=== PATIENT | female | born 1965 | race Caucasian/White ===

== ENCOUNTER → 2020-08-20 16:56 | Outpatient (CLI) | payer OTHER, SELFPAY ==
--- NOTE | ~2020-08-20 | MM_ITS ---
EXAMINATION: MM screening [facility] BI w shauna HISTORY: Screening mammogram TECHNIQUE: Craniocaudal and mediolateral oblique 3-D tomosynthesis images were obtained and synthetic 2-D images were generated. CAD analysis was submitted and interpreted. COMPARISON: 07/14/2017, 02/28/2014, 12/07/2012 bilateral digital screening mammogram examinations BREAST PARENCHYMAL COMPOSITION: There are scattered areas of fibroglandular density. FINDINGS: There is no evidence of suspicious mass, calcification, or architectural distortion to sugg est malignancy in either breast. There has been no suspicious interval change. IMPRESSION: 1. No mammographic evidence of malignancy. 2. Recommend routine screening mammography in one year. BI-RADS Category 1: Negative Reviewed, dictated and finalized at location A.
== END ==
PROVIDERS: PCP Nurse Practitioner Adult Health; Visit Provider Obstetrics & Gynecology
DX: Z12.31 Encounter for screening mammogram for malignant neoplasm of breast (principal)
CPT/HCPCS: 77063; 77067

== ENCOUNTER → 2021-03-05 11:42 | Outpatient (CLI) | payer OTHER, SELFPAY ==
--- NOTE | ~2021-03-05 | XR_ITS ---
EXAMINATION: XR knee RT 3V DATE: 03/05/2021 12:20 INDICATION: Right knee pain. TECHNIQUE: 3 views of right knee were obtained. COMPARISON: None. FINDINGS: Bone alignment is normal. No fracture. There is mild tricompartmental osteoarthritis. There is a small knee joint effusion. IMPRESSION: 1. Mild right knee osteoarthritis. 2. Small right knee joint effusion. Reviewed, dictated and finalized at location A.
== END ==
PROVIDERS: PCP Nurse Practitioner Adult Health; Visit Provider Family Medicine
DX: M17.11 Unilateral primary osteoarthritis, right knee (principal); M25.461 Effusion, right knee
CPT/HCPCS: 73562

== ENCOUNTER 2021-10-19 08:04 | Outpatient (RCR) | payer OTHER, SELFPAY ==
[2021-10-19] MEDS: diphenhydrAMINE HCl CAP 25 MG CAPSULE PO (10:40)
[2021-10-19] MEDS: ACETAMINOPHEN 325 MG TABLET 650 MG PO (10:41)
[2021-10-19] MEDS: FAMOTIDINE 20 MG TABLET PO (10:41)
[2021-10-19 10:43] VITALS: BP 149/90; PULSE 76; RESP 20; TEMP 36.6; O2SAT 97
[2021-10-19 12:20] VITALS: BP 177/90
--- NOTE | 2021-10-20 09:35 | PC.NURSE ---
Called Ms Reynoso, and had to leave a message for her to call back.
--- NOTE | 2021-10-20 09:44 | PC.NURSE ---
Ms Edgardo called back and she is doing much better today and has no questions at this time.
== END 2021-10-19 17:00 ==
LOC: AMCINF 08:04
PROVIDERS: PCP Nurse Practitioner Family; Visit Provider Internal Medicine Hematology & Oncology
DX: U07.1 COVID-19 (principal); I10 Essential (primary) hypertension; Z79.899 Other long term (current) drug therapy
CPT/HCPCS: A9270; M0245; Q0245

== ENCOUNTER → 2022-01-07 12:26 | Outpatient (CLI) | payer OTHER, SELFPAY ==
--- NOTE | ~2022-01-07 | MM_ITS ---
EXAMINATION: MM screening [facility] BI w shauna HISTORY: Screening TECHNIQUE: Craniocaudal and mediolateral oblique 3-D tomosynthesis images were obtained and synthetic 2-D images were generated. CAD analysis was submitted and interpreted. COMPARISON: Comparison to multiple prior studies sequentially, with oldest reviewed study dated 05/2013. BREAST PARENCHYMAL COMPOSITION: There are scattered areas of fibroglandular density. FINDINGS: There is no evidence of suspicious mass, calcification, or architectural distortion to sugg est malignancy in either breast. There has been no suspicious interval change. IMPRESSION: 1. No mammographic evidence of malignancy. 2. Recommend routine screening mammography in one year. BI-RADS Category 1: Negative Reviewed, dictated and finalized at location A. [employer]
== END ==
PROVIDERS: Visit Provider Obstetrics & Gynecology
DX: Z12.31 Encounter for screening mammogram for malignant neoplasm of breast (principal)
CPT/HCPCS: 77063; 77067

== ENCOUNTER 2022-11-16 23:53 | Observation (INO) | payer BC, SELFPAY ==
--- NOTE | ~2022-11-16 | XR_ITS ---
Clinical Indication: Chest pain PA and lateral views of the chest: Comparison: None Findings: The lungs are clear, without evidence of focal consolidation or pleural effusion. Cardiome diastinal silhouette is within normal limits. Bones and soft tissues are unremarkable. Impression: Normal chest. Reviewed, dictated and finalized at location . [employer] Impression: Normal chest.
[2022-11-17] VITALS (13 sets, daily range): BP systolic 118–152; BP diastolic 82–98; PULSE 70–96; RESP 16–20; TEMP 36.2–36.5; O2SAT 93–99; BMI 39.7; BMI 38.5
--- NOTE | 2022-11-17 | ECHO_ITS ---
Patient Info Name: Karmen Reynoso Age: 57 years : 1965 Gender: Female Ht: 65 in Wt: 231 lbs BSA: 2.24 m2 HR: 70 bpm BP: 139 / 86 mmHg Heart Rhythm: Sinus Rhythm Technical Quality: Poor Exam Date: 11/17/2022 11:36 AM Exam Location: [facility] Pulmonary Patient Status: Inpatient Admit Date: 11/17/2022 Staff Ordering Physician: Connie Lucio MD (gisell/remigio) Tie Maker: Elvira Slater RDCS Attending Provider: Latisha Espinal PA-C Referring Physician: Naveed PLAZA; Exam Type: CA echo dop color flow w con Study Info Indications R07.9 - Chest pain, unspecified Complete two-dimensional, color flow and Doppler transthoracic echocardiogram is performed with contrast to opacify the left ventricle and to improve the deliniation of the left ventricle endocardial borders. Contrast/Agitated Saline Contrast/Ag. Saline: Definity Amount: 2.00 ml Administered By: Elvira Slater RDCS Existing IV Access: Yes IV Access Condition: patent with no signs of infiltration Reason for Poor Study: poor echocardiographic windows Summary 1. Left ventricular chamber dimension is normal. 2. Left ventricular systolic function is normal, estimated at 60-65%. 3. The left ventricular diastolic function is grade I diastolic dysfunction. 4. No significant valvular disease. Left Ventricle Left ventricular chamber dimension is normal. Left ventricular systolic function is normal, estimated at 60-65%. There is no increased left ventricular wall thickness. The left ventricular diastolic function is grade I diastolic dysfunction. Right Ventricle Right ventricular chamber dimension is not well visualized. Left Atria Left atrial chamber dimension is normal. Right Atria Right atrial chamber dimension is normal. Atrial Septum Intact interatrial septum visualized by color flow imaging. Aortic Valve The aortic valve is not well visualized. There is no aortic valve stenosis. There is no aortic valve regurgitation. Pulmonic Valve The pulmonic valve is not well visualized. Mitral Valve The mitral valve has normal leaflets. There is no mitral valve stenosis. There is trace mitral valve regurgitation. Tricuspid Valve There is trace tricuspid valve regurgitation. Pericardium/Pleural There is no pericardial effusion. Inferior Vena Cava Normal inferior vena cava with >50% collapse upon inspiration consistent with normal right atrial pressure, 3 mmHg. Aorta The aortic root size at the sinus of Valsalva is normal. Left Ventricular Outflow Tract Name Value Normal LVOT 2D LVOT Diameter 2.04 cm LVOT Doppler LVOT Peak Gradient 4 mmHg LVOT Mean Gradient 2 mmHg LVOT VTI 18.35 cm LVOT VTI/AV VTI Ratio 0.85 LVOT Stroke Volume 60.11 ml LVOT CO 4.27 l/min LVOT CI 1.90 L/min/m2 Pulmonic Valve
--- NOTE | 2022-11-17 00:15 | PC.NURSE ---
no answer at triage 1535. checked waiting room and restrooms with no answer
--- NOTE | 2022-11-17 00:17 | ECG_ITS ---
Measurements Intervals Ericson Rate: 78 P: 23 TN: 171 QRS: -14 QRSD: 97 T: -1 QT: 370 QTc: 422 Interpretive Statements SINUS RHYTHM VOLTAGE CRITERIA FOR LVH NONSPECIFIC T-WAVE ABNORMALITY- INFERIOR LEADS BORDERLINE ECG NO PREVIOUS ECG AVAILABLE FOR COMPARISON Electronically Signed On 11-17-2022 7:48:15 [employer] by Nando Eubanks D.O.
[2022-11-17 00:34] LABS: Basophils Percent Auto 0.4 % (0.2-1.2); Eosinophils Absolute Auto 0.1 K/mm3 (0-0.3); Eosinophils Percent Auto 1.3 % (0-4.4); Hematocrit 44.7 % (37.0-47.0); Hemoglobin 14.9 g/dL (12.0-15.0); Immature Granulocyte Absolute 0.02 K/mm3 (0.00-0.031); Immature Granulocyte Percent A 0.3 % (0-0.5); Lymphocytes Absolute Auto 1.18 K/mm3 (0.9-3.2); Lymphocytes Percent Auto 17.1 % (18.3-44.2); Mean Corpuscular HGB Conc 33.3 g/dl (32-36); Mean Corpuscular Hemoglobin 29.5 pg (26-34); Mean Corpuscular Volume 88.5 fl (80-100); Mean Platelet Volume 9.4 fl (7.4-10.4); Monocytes Absolute Auto 0.5 K/mm3 (0.1-0.6); Monocytes Percent Auto 7.5 % (2.6-8.5); Neutrophils Absolute Auto 5.1 K/mm3 (1.3-6.7); Neutrophils Percent Auto 73.4 % (45.5-73.1); Platelet Count Result 269 k/mm3 (150-375); Red Blood Count 5.05 M/mm3 (4.2-5.4); Red Cell Distribution Width 13.2 % (11.5-14.5); White Blood Count 6.9 K/mm3 (4.5-10.0)
[2022-11-17] MEDS: ASPIRIN 81 MG CHEWABLE TABLET 324 MG PO (00:42)
[2022-11-17 00:44] LABS: Alanine Aminotransferase 34 U/L (6-35); Albumin Level 4.3 g/dL (3.5-5.1); Alkaline Phosphatase 99 U/L (38-126); Anion Gap 8 mmol/L (8-16); Aspartate Amino Transferase 23 U/L (14-36); Bilirubin,Total 0.8 mg/dL (0.2-1.3); Blood Urea Nitrogen 11 mg/dL (7-17); Calcium 8.7 mg/dL (8.4-10.2); Carbon Dioxide 27 mmol/L (22-30); Chloride 102 mmol/L (98-107); Estimated CRCL calculation 91 ml/min; Estimated Glomerular Filt Rate > 60; Glucose 117 mg/dL (65-110); Lipase 57 U/L (23-300); Potassium 3.5 mmol/L (3.4-5.0); Sodium 137 mmol/L (137-145)
[2022-11-17 00:46] LABS: Prothrombin Time 12.9 Seconds (11.1-14.7)
[2022-11-17 00:47] LABS: Partial Thromboplastin Time 29.5 SECONDS (22.3-36.8)
[2022-11-17 00:55] LABS: Troponin I < 0.012 ng/mL (0.000-0.034)
--- NOTE | 2022-11-17 00:55 | ED.CHESTPAIN ---
HPI - Chest Pain General Chief Complaint: Chest Pain Stated Complaint: chest pain Time Seen by Provider: 11/17/22 00:06 History of Present Illness HPI narrative: Patient is a 57-year-old female who presents ER with chest pain. Sudden onset 11:45 PM. Central pressure. 9/10. Radiated to her back. Associate with diaphoresis as well as nausea. She also developed bilateral arm heaviness. Symptoms lasted 15 to 20 minutes. No alleviating factors other than time. Patient attempted belching. Woke her from sleep. Patient reports that she had had a GI illness of previous day with fever and diarrhea. She is not currently having those symptoms. No abdominal discomfort. No history of heart disease. She does have a father who had an SD. Related Data Home Medications Medication Instructions Recorded Confirmed celecoxib 200 mg capsule (Celebrex) 200 mg PO BID 09/15/21 11/09/22 hydroxychloroquine 400 mg tablet 400 mg PO DAILY 09/15/21 11/09/22 cholecalciferol (vitamin D3) 50 50 mcg PO DAILY 11/10/21 11/09/22 mcg (2,000 unit) capsule azathioprine 50 mg tablet 100 mg PO DAILY 02/25/22 11/09/22 golimumab 12.5 mg/mL intravenous IV .q8 02/25/22 11/09/22 solution (Simponi ARIA) Allergies Allergy/AdvReac Type Severity Reaction Status Date / Time latex Allergy Unknown Skin Verified 11/09/22 09:07 Reaction adhesive tape AdvReac Mild Other Verified 11/09/22 09:07 Review of Systems Review of Systems: All systems reviewed & are unremarkable except as noted in HPI and below Constitutional: Constitutional: Denies chills, Denies fatigue and Denies fever(s) ENT: Denies nasal congestion and Denies sore throat Cardiovascular: Cardiovascular: Reports chest pain, Denies rapid heart rate, Reports radiating jaw, neck or arm pain and Denies slow heart rate Respiratory: Respiratory: Denies cough and Denies dyspnea Gastrointestinal: Gastrointestinal: Denies abdominal pain, Reports diarrhea, Reports nausea and Denies vomiting Genitourinary: Genitourinary: Denies nocturia and Denies dysuria [facility] Past Medical History Medical History (Updated 11/17/22 @ 04:52 by Anton Keys MD) Abdominal pain Anxiety Asthma BMI 37.0-37.9, adult BMI 38.0-38.9,adult Diarrhea Encounter to establish care Hx LEEP (loop electrosurgical excision procedure), cervix, Hyperlipidemia Hypertension Hypertension Influenza-like illness EIDTH on CPAP Rheumatoid arthritis Screening for diabetes mellitus Seasonal allergies Vitamin D deficiency Wellness examination Surgical History Surgical History (Reviewed 05/11/22 @ 08:56 by Derrell Lauren [facility]) H/O adenoidectomy History of bilateral carpal tunnel release (~1994) History of delivery (~1991) 1192 and 2002 History of tonsillectomy (~1987) Family History Family History (Reviewed 05/11/22 @ 08:56 by Derrell Lauren [facility]) Father Diabetes mellitus Hypertension Heart disease Cerebrovascular accident Mother Diabetes mellitus Hypertension Anxiety Cerebrovascular accident Heart disease Thyroid disorder Grandparent Alcoholism Grandparent Cancer Parkinson disease Paget's disease Other Family history of arthritis Family history of heart disease in male family member before age 55 Social History Social History Smoking status: Never smoker Additional smoking assessment comments: tried in her teens never took to it on a daily basis Alcohol intake: current Substance use: never Substance use type: does not use Lack of Transportation: No Lack of Food: Never True Current Housing: I Have Housing Concerned About Future Housing: No Difficulty Paying Gas/Electric Bills: No Difficulty Paying for Meds: No Currently Unemployed: No Education: Associate Degree Difficulty w/ Childcare or Family Care: No Spiritual care concerns: No Exam Narrative: GENERAL: Well-appearing, obes
[2022-11-17 03:53] LABS: Troponin I < 0.012 ng/mL (0.000-0.034)
--- NOTE | 2022-11-17 05:35 | ADMGEN ---
This patient, Karmen Reynoso, was admitted to IMU Room 211-01 at 0511. Patient/family oriented to hospital policies and general routines including ID bracelet, bed and alarms, visiting hours, pain management, procedures, bathroom and other care routines, personal items, smoking policy, room service/diet, and visiting hours. Information on how to activate the Rapid Response Team has been discussed. Patient/Family are encouraged to report perceived risks to care and to ask questions if they do not understand what they are told or what they should do.
[2022-11-17 05:46] LABS: Influenza A QL RT-PCR Negative (Negative); Influenza B QL RT-PCR Negative (Negative); SARS-CoV-2 RNA PCR Negative
[2022-11-17 06:40] LABS: Troponin I < 0.012 ng/mL (0.000-0.034)
[2022-11-17] MEDS: METOPROLOL SUCCINATE EXT REL 50 MG TABCR PO (09:03)
--- NOTE | 2022-11-17 09:04 | PM.IMHP ---
H&P: HPI History of Present Illness Date/Time: 11/17/22 09:04 Chief Complaint: chest pain Narrative: Pt is a 57 yo female w/ hx of HTN, HLD, RA, EDITH, obesity, anxiety, who presented to the ED with chest pain. She states yesterday morning she woke up with GI upset and throughout the day developed fever up to 102.4, diarrhea, and abdominal cramping. She had decreased appetite and PO intake yesterday and went to bed after eating a piece of toast with peanut butter. She states she woke up suddenly around 11:30 pm with mid sternal chest pain that she describes as sharp pressure that she rated a 9/10. She then developed nausea and went to the bathroom at which point she was sitting on the floor and became diaphoretic and light headed. No vomiting. She then went and laid in bed and felt bilateral arm numbness/heaviness. At that time she asked her to drive her to the ER. The entire episode lasted approximately 30 minutes. She denies associated sob, palpitations, focal weakness, vision changes. Father w/ hx of [place] in his 50s. Pt w/ negative trop x 3 and EKG unremarkable. Admitted as observation status for cardiology consult and possible stress test. Review of Systems Review of Systems: All systems reviewed & are unremarkable except as noted in HPI and below [facility] Past Medical History Medical History (Updated 11/17/22 @ 09:14 by Latisha Espinal PA-C) Anxiety Asthma BMI 38.0-38.9,adult Hx LEEP (loop electrosurgical excision procedure), cervix, Hyperlipidemia Hypertension EDITH on CPAP Rheumatoid arthritis Seasonal allergies Vitamin D deficiency Surgical History Surgical History H/O adenoidectomy History of bilateral carpal tunnel release (~1994) History of delivery (~1991) 1192 and 2002 History of tonsillectomy (~1987) Family History Family History Father Diabetes mellitus Hypertension Heart disease Cerebrovascular accident Mother Diabetes mellitus Hypertension Anxiety Cerebrovascular accident Heart disease Thyroid disorder Grandparent Alcoholism Grandparent Cancer Parkinson disease Paget's disease Other Family history of arthritis Family history of heart disease in male family member before age 55 Social History Social History Smoking status: Never smoker Additional smoking assessment comments: tried in her teens never took to it on a daily basis Alcohol intake: current Drinks per week: 1 Substance use: never Substance use type: does not use Lack of Transportation: No Lack of Food: Never True Current Housing: I Have Housing Concerned About Future Housing: No Difficulty Paying Gas/Electric Bills: No Difficulty Paying for Meds: No Currently Unemployed: No Education: Associate Degree Difficulty w/ Childcare or Family Care: No Spiritual care concerns: No Meds Home Medications and Allergies Home Medications Medication Instructions Recorded Confirmed Type celecoxib 200 mg capsule (Celebrex) 200 mg PO BID 09/15/21 11/09/22 History fluticasone propionate 50 1 spray intranasal BID #16 grams 09/15/21 11/17/22 Rx mcg/actuation nasal spray,suspension (Flonase Allergy Relief) hydroxychloroquine 400 mg tablet 400 mg PO DAILY 09/15/21 11/09/22 History cholecalciferol (vitamin D3) 50 50 mcg PO DAILY 11/10/21 11/09/22 History mcg (2,000 unit) capsule azathioprine 50 mg tablet 100 mg PO DAILY 02/25/22 11/09/22 History golimumab 12.5 mg/mL intravenous IV .q8 02/25/22 11/09/22 History solution (Simponi ARIA) cefdinir 300 mg capsule 300 mg PO Q12H #20 caps 11/02/22 11/09/22 Rx albuterol sulfate 90 mcg/actuation 1 - 2 inh inhalation Q4-6H PRN 11/09/22 11/17/22 Rx aerosol inhaler shortness of breath or wheezing #8.5 grams fluconazole
[2022-11-17] MEDS: FLUTICASONE PROPIONATE 0.05% NA SPR 16 GM BTL (*BKC) 1 SPRAY NASAL (09:05)
--- NOTE | 2022-11-17 09:11 | PM.CNCAR ---
Assessment and Plan Assessment and plan (1) Chest pain: Code(s): R07.9 - Chest pain, unspecified Status: Acute (2) Abdominal pain: Code(s): R10.9 - Unspecified abdominal pain Status: Acute (3) Diarrhea: Code(s): R19.7 - Diarrhea, unspecified Status: Acute (4) Hyperlipidemia: Code(s): E78.5 - Hyperlipidemia, unspecified Status: Acute (5) Hypertension: Code(s): I10 - Essential (primary) hypertension Status: Acute Plan Patient is no longer having chest pain. Troponins negative x 3. EKG without ischemic changes. It would be reasonable to do stress testing in this patient given her risk factors for heart disease, however, patient already ate breakfast this morning, so we could not do it today. Patient does not wish to stay in the hospital to get it done tomorrow, and would rather follow-up as an outpatient for outpatient stress testing, which is also reasonable. Will obtain an echo. If no significant abnormalities on echo today, then she can be discharged home later today. History of Present Illness History of Present Illness Consult date/time: 11/17/22 09:11 Requesting physician: Anton Keys MD Consult reason: chest pain Reason For Visit: chest pain Narrative: We are consulted for chest pain. This is a 57-year-old female with a history of hypertension, hyperlipidemia, obesity who presented with chest pain. Patient reports that she had had a viral illness with abdominal pain, fevers, diarrhea. Last night around 11:30 when sleeping, she woke up with substernal chest pain. She got out of bed, had some diaphoresis with bilateral arm numbness. Patient came to the ER for further evaluation. By the time she came to the ER, her chest pain was easing up and then resolved. No further chest pain since then. EKG without ischemic changes. Troponins negative x 3. Review of Systems Review of Systems: 12-point ROS obtained. Negative, unless stated in HPI. [facility] Past Medical History Medical History Abdominal pain Anxiety Asthma BMI 37.0-37.9, adult BMI 38.0-38.9,adult Diarrhea Encounter to establish care Hx LEEP (loop electrosurgical excision procedure), cervix, Hyperlipidemia Hypertension Hypertension Influenza-like illness EDITH on CPAP Rheumatoid arthritis Screening for diabetes mellitus Seasonal allergies Vitamin D deficiency Wellness examination Surgical History Surgical History H/O adenoidectomy History of bilateral carpal tunnel release (~1994) History of delivery (~1991) 1192 and 2002 History of tonsillectomy (~1987) Family History Family History Father Diabetes mellitus Hypertension Heart disease Cerebrovascular accident Mother Diabetes mellitus Hypertension Anxiety Cerebrovascular accident Heart disease Thyroid disorder Grandparent Alcoholism Grandparent Cancer Parkinson disease Paget's disease Other Family history of arthritis Family history of heart disease in male family member before age 55 Social History Social History Smoking status: Never smoker Additional smoking assessment comments: tried in her teens never took to it on a daily basis Alcohol intake: current Drinks per week: 1 Substance use: never Substance use type: does not use Lack of Transportation: No Lack of Food: Never True Current Housing: I Have Housing Concerned About Future Housing: No Difficulty Paying Gas/Electric Bills: No Difficulty Paying for Meds: No Currently Unemployed: No Education: Associate Degree Difficulty w/ Childcare or Family Care: No Spiritual care concerns: No Meds Home Medications and Allergies Home Medications Medication Instructions Recorded Confirmed
[2022-11-17] MEDS: PERFLUTREN LIPID MICROSPHERES 1.5 ML VIAL DILUTED TO 10 ML TOTAL VOLUME IV PUSH (12:00)
--- NOTE | 2022-11-17 14:16 | PM.DS ---
DS: Admitting Diagnosis Discharge Date 11/17/22 Admitting Diagnosis Chest pain DS: Discharge Diagnosis Discharge Diagnosis (1) Chest pain: Code(s): R07.9 - Chest pain, unspecified Status: Acute (2) Hypertension: Code(s): I10 - Essential (primary) hypertension Status: Acute (3) Diarrhea: Code(s): R19.7 - Diarrhea, unspecified Status: Acute DS: Summary Hospital Course Reason for hospitalization: Pt is a 57 yo female w/ hx of HTN, HLD, RA, EDITH, obesity, anxiety, who presented to the ED with chest pain. Hospital Course: Pt was admitted for chest pain given her risk factors for heart disease. EKG was unremarkable, trop x 3 negative, and echo was unremarkable. Pt was seen by cardiology who recommended outpatient stress test and discharge today. Suspect her chest pain was in relation to her acute viral GI illness that she has had ongoing as well but will still advise she follow up promptly for the stress test with cardiology. All questions and concerns addressed. Status at Discharge Functional status at discharge: independent ambulation Overall status at discharge: patient is back to baseline Time Spent with Patient Time attestation: Total time spent providing and/or coordinating discharge services: 35 Time spent: Greater than 30 minutes Exam Narrative: General: No acute distress, non toxic appearing, obese Eyes: PERRL, no scleral icterus HEENT: NCAT, external ears normal, MMM Respiratory: No respiratory distress, Lungs CTA bilaterally, no wheezing Cardiovascular: RRR, no murmur Abdominal: Soft, nontender, non distended, no rebound or guarding Musculoskeletal: Moves all 4 extremities, no edema Neurological: A/Ox3, speech clear, no facial asymmetry Skin: Warm, dry, no rashes Psychiatric: Normal affect, normal mood DS: Data Data Completed and Pending Labs on day of discharge: Labs from last 24 hours 11/17/22 11/17/22 11/17/22 06:12 05:01 03:24 WBC RBC Hgb Hct MCV MCH MCHC RDW Plt Count MPV Immature Gran % (Auto) Neut % (Auto) Lymph % (Auto) [place] % (Auto) Eos % (Auto) Baso % (Auto) Lymph # (Auto) [place] # (Auto) Eos # (Auto) Baso # (Auto) Abs Immat Gran (auto) Absolute Neuts (auto) Absolute Nucleated RBC Nucleated RBC % PT INR APTT Sodium Potassium Chloride Carbon Dioxide Anion Gap BUN Creatinine Estim Creat Clear Calc Estimated GFR Glucose Calcium Total Bilirubin AST ALT Alkaline Phosphatase Troponin I < 0.012 < 0.012 Total Protein Albumin Lipase Influenza A (RT-PCR) Negative Influenza B (RT-PCR) Negative SARS-CoV-2 RNA (RT-PCR) Negative 11/17/22 11/17/22 11/17/22 00:29 00:29 00:29 WBC 6.9 RBC 5.05 Hgb 14.9 Hct 44.7 MCV 88.5 MCH 29.5 MCHC 33.3 RDW 13.2 Plt Count 269 MPV 9.4 Immature Gran % (Auto) 0.3 Neut % (Auto) 73.4 H Lymph % (Auto) 17.1 L [place] % (Auto) 7.5 Eos % (Auto) 1.3 Baso % (Auto) 0.4 Lymph # (Auto) 1.18 [place] # (Auto) 0.5 Eos # (Auto) 0.1 Baso # (Auto) 0.0 Abs Immat Gran (auto) 0.02 Absolute Neuts (auto) 5.1 Absolute Nucleated RBC 0.0 Nucleated RBC % 0.0 PT 12.9 INR 1.0 APTT 29.5 Sodium 137 Potassium 3.5 Chloride 102 Carbon Dioxide 27 Anion Gap 8 BUN 11 Creatinine 0.70 Estim Creat Clear Calc 91 Estimated GFR > 60 Glucose 117 H Calcium 8.7 Total Bilirubin 0.8 AST 23 ALT 34 Alkaline Phosphatase 99 Troponin I < 0.012 Total Protein 8.0 Albumin 4.3 Lipase 57 Influenza A (RT-PCR) Influenza B (RT-PCR) SARS-CoV-2 RNA (RT-PCR) Discharge Plan Discharge Attending physician on discharge: Anne-Marie Malik Consulting providers: Jacquelin Orozco Discharging Clinician: Latisha Espinal
== END 2022-11-17 16:05 | disposition home or self-care (01) ==
LOC: ANHED 11-17 00:46 → ANHIMU 11-17 04:52
PROVIDERS: Admitting Provider Internal Medicine; Emergency Provider Emergency Medicine; PCP Nurse Practitioner Family; Visit Provider Physician Assistant
DX: R07.9 Chest pain, unspecified (principal); F41.9 Anxiety disorder, unspecified; I11.9 Hypertensive heart disease without heart failure; J45.909 Unspecified asthma, uncomplicated; E78.5 Hyperlipidemia, unspecified; R19.7 Diarrhea, unspecified; R61 Generalized hyperhidrosis; G47.33 Obstructive sleep apnea (adult) (pediatric); Z99.89 Dependence on other enabling machines and devices; M06.9 Rheumatoid arthritis, unspecified; E55.9 Vitamin D deficiency, unspecified; E66.9 Obesity, unspecified; Z68.36 Body mass index [BMI] 36.0-36.9, adult; F10.90 Alcohol use, unspecified, uncomplicated; Z79.51 Long term (current) use of inhaled steroids; Z79.52 Long term (current) use of systemic steroids; Z79.899 Other long term (current) drug therapy; Z82.49 Family history of ischemic heart disease and other diseases of the circulatory system
CPT/HCPCS: 36415; 71046; 80053; 83690; 84484; 85025; 85610; 85730; 87636; 93005; 96374; 99285; A9270; C8929; G0378; Q9957

== ENCOUNTER 2022-12-30 00:38 | Day surgery (SDC) | payer BC, SELFPAY ==
[2022-12-20 11:52] VITALS: BMI 39.5
--- NOTE | 2022-12-29 15:59 | PM.HPGS ---
History of Present Illness History of Present Illness Consent: Risks, benefits, and alternatives have been discussed and questions answered. Patient agrees to proceed with procedure. Chief complaint: neoplasm screening Narrative: Karmen Reynoso is a 57 year old female was referred for colon cancer screening. She has had a recent visit to emergency room with chest pain but was found to be noncardiac. Review of Systems Review of Systems: All systems reviewed & are unremarkable except as noted in HPI and below PMFSH Past Medical History Medical History Anxiety Asthma BMI 38.0-38.9,adult Hx LEEP (loop electrosurgical excision procedure), cervix, Hyperlipidemia Hypertension EDITH on CPAP Rheumatoid arthritis Seasonal allergies Vitamin D deficiency Surgical History Surgical History H/O adenoidectomy History of bilateral carpal tunnel release (~1994) History of delivery (~1991) 119 and 2002 History of tonsillectomy (~1987) Family History Family History Father Diabetes mellitus Hypertension Heart disease Cerebrovascular accident Mother Diabetes mellitus Hypertension Anxiety Cerebrovascular accident Heart disease Thyroid disorder Grandparent Alcoholism Grandparent Cancer Parkinson disease Paget's disease Other Family history of arthritis Family history of heart disease in male family member before age 55 Social History Social History Smoking status: Never smoker Additional smoking assessment comments: tried in her teens never took to it on a daily basis Alcohol intake: current Drinks per week: 1 Alcohol use details: rarely Substance use: never Substance use type: does not use Lack of Transportation: No Lack of Food: Never True Current Housing: I Have Housing Concerned About Future Housing: No Difficulty Paying Gas/Electric Bills: No Difficulty Paying for Meds: No Currently Unemployed: No Education: Associate Degree Difficulty w/ Childcare or Family Care: No Living arrangements: with family Spiritual care concerns: No Meds Home Medications and Allergies Home Medications Medication Instructions Recorded Confirmed Type cholecalciferol (vitamin D3) 50 50 mcg PO DAILY 11/10/21 12/20/22 History mcg (2,000 unit) capsule albuterol sulfate 90 mcg/actuation 1 - 2 inh inhalation Q4-6H PRN 11/09/22 12/20/22 Rx aerosol inhaler shortness of breath or wheezing #8.5 grams benazepril 40 mg tablet 40 mg PO DAILY #90 tabs 11/11/22 12/20/22 Rx metoprolol succinate 50 mg 50 mg PO DAILY #90 tabs 11/11/22 12/20/22 Rx tablet,extended release 24 hr Allergies Allergy/AdvReac Type Severity Reaction Status Date / Time latex Allergy Unknown Skin Verified 12/30/22 11:06 Reaction adhesive tape AdvReac Mild Other Verified 12/30/22 11:06 Exam Resp: Auscultation: clear to auscultation bilaterally Cardio: Rate: regular rate Rhythm: regular rhythm GI: GI Palp: Yes Soft to palpation and No Tenderness to palpation present (GI) Assessment and Plan Assessment and plan (1) Colon cancer screening: Code(s): Z12.11 - Encounter for screening for malignant neoplasm of colon Status: Acute Assessment and Plan: Colonoscopy with possible biopsy or polypectomy or cautery or injection of substances.
[2022-12-30 11:07] VITALS: BP 154/97; PULSE 87; RESP 20; TEMP 36.4; O2SAT 97; BMI 40.0
[2022-12-30] MEDS: LACTATED RINGERS 1,000 ML 150 ML IV CONT (11:13)
--- NOTE | 2022-12-30 12:34 | WPDANESEPPF ---
Anes - Initial Pre Proc Eval Procedure: Operation Date: 12/30/22 12:30 Proposed Procedures p Screening Colonoscopy - Kaden Pittman MD Date/Time: 12/30/22 12:34 Surgeon: Kaden Pittman MD Pre Op Diagnosis: neoplasm screening Patient Data Age: 57 Gender: F Height: 1.63 m Weight: 105.9 kg Last Vital Signs Temp 97.5 F L 12/30/22 11:07 Pulse 87 12/30/22 11:07 Resp 20 12/30/22 11:07 BP 154/97 H 12/30/22 11:07 Pulse Ox 97 12/30/22 11:07 O2 Del Method Room Air 12/30/22 11:07 Allergies Allergy/AdvReac Type Severity Reaction Status Date / Time latex Allergy Unknown Skin Verified 12/30/22 11:06 Reaction adhesive tape AdvReac Mild Other Verified 12/30/22 11:06 Home Medications Medication Instructions Recorded Confirmed Type cholecalciferol (vitamin D3) 50 50 mcg PO DAILY 11/10/21 12/20/22 History mcg (2,000 unit) capsule albuterol sulfate 90 mcg/actuation 1 - 2 inh inhalation Q4-6H PRN 11/09/22 12/20/22 Rx aerosol inhaler shortness of breath or wheezing #8.5 grams benazepril 40 mg tablet 40 mg PO DAILY #90 tabs 11/11/22 12/20/22 Rx metoprolol succinate 50 mg 50 mg PO DAILY #90 tabs 11/11/22 12/20/22 Rx tablet,extended release 24 hr Patient hx anesthesia problems: none Family hx anesthesia problems: none Results Review: All pre-operative results and documents have been reviewed as part of the pre-operative evaluation. [facility] Past Medical History Medical History Anxiety Asthma BMI 38.0-38.9,adult Hx LEEP (loop electrosurgical excision procedure), cervix, Hyperlipidemia Hypertension EDITH on CPAP Rheumatoid arthritis Seasonal allergies Vitamin D deficiency Surgical History Surgical History H/O adenoidectomy History of bilateral carpal tunnel release (~1994) History of delivery (~1991) 1192 and 2002 History of tonsillectomy (~1987) Family History Family History Father Diabetes mellitus Hypertension Heart disease Cerebrovascular accident Mother Diabetes mellitus Hypertension Anxiety Cerebrovascular accident Heart disease Thyroid disorder Grandparent Alcoholism Grandparent Cancer Parkinson disease Paget's disease Other Family history of arthritis Family history of heart disease in male family member before age 55 Social History Social History Smoking status: Never smoker Additional smoking assessment comments: tried in her teens never took to it on a daily basis Alcohol intake: current Drinks per week: 1 Alcohol use details: rarely Substance use: never Substance use type: does not use Lack of Transportation: No Lack of Food: Never True Current Housing: I Have Housing Concerned About Future Housing: No Difficulty Paying Gas/Electric Bills: No Difficulty Paying for Meds: No Currently Unemployed: No Education: Associate Degree Difficulty w/ Childcare or Family Care: No Living arrangements: with family Spiritual care concerns: No Anes - Eval Final PreProcedure Day of Procedure 12/30/22 12:34 Patient weight: morbidly obese Heart: regular rate and rhythm Lungs: clear to auscultation Airway: Mallampati scale class III Neurological: alert and oriented Last oral intake: >/= 8 hours ASA classification: III Emergent: no Anesthetic plan: proceed Anesthesia type and monitoring: general GIVS and standard monitoring Results Review: All pre-operative results and documents have been reviewed as part of the pre-operative evaluation. Informed Consent: The patient's anesthetic plan and its attendant risks and benefits were discussed with the patient/family/POA. Questions were solicited and answers provided to the satisfaction of the patient/family/POA.
[2022-12-30 13:08] VITALS: BP 132/96; PULSE 83; RESP 21; O2SAT 97
[2022-12-30 13:18] VITALS: BP 128/84; PULSE 79; RESP 15; O2SAT 96
[2022-12-30 13:28] VITALS: BP 143/89; PULSE 83; RESP 19; O2SAT 97
== END 2022-12-30 13:40 | disposition home or self-care (01) ==
PROVIDERS: PCP Nurse Practitioner Family; Visit Provider Internal Medicine Gastroenterology
PROC: 0DJD8ZZ Inspection of Lower Intestinal Tract, Via Natural or Artificial Opening Endoscopic (ICD-10-PCS; CPT 45378; principal; 2022-12-30 12:30)
DX: Z12.11 Encounter for screening for malignant neoplasm of colon (principal); K57.30 Diverticulosis of large intestine without perforation or abscess without bleeding; K64.8 Other hemorrhoids; J45.909 Unspecified asthma, uncomplicated; I10 Essential (primary) hypertension; E78.5 Hyperlipidemia, unspecified; G47.33 Obstructive sleep apnea (adult) (pediatric); M06.9 Rheumatoid arthritis, unspecified; E55.9 Vitamin D deficiency, unspecified; Z79.51 Long term (current) use of inhaled steroids; E66.01 Morbid (severe) obesity due to excess calories; Z68.41 Body mass index [BMI] 40.0-44.9, adult
CPT/HCPCS: 45378; J2704; J7120

== ENCOUNTER 2024-03-15 10:36 | Outpatient (CLI) | payer BC, SELFPAY ==
--- NOTE | ~2024-03-15 | MM_ITS ---
EXAMINATION: MM screening judith BI w shauna HISTORY: Screening mammogram TECHNIQUE: Craniocaudal and mediolateral oblique 3-D tomosynthesis images were obtained and synthetic 2-D images were generated. CAD analysis was submitted and interpreted. COMPARISON: 01/07/2022, 08/20/2020 bilateral screening mammogram examinations BREAST PARENCHYMAL COMPOSITION: There are scattered areas of fibroglandular density. FINDINGS: There is no evidence of suspicious mass, calcification, or architectural distortion to sugg est malignancy in either breast. There has been no suspicious interval change. IMPRESSION: 1. No mammographic evidence of malignancy. 2. Recommend routine screening mammography in one year. BI-RADS Category 1: Negative Reviewed, dictated and finalized at location B.
== END 2024-03-15 10:37 ==
LOC: MICIMG 10:37
PROVIDERS: PCP Nurse Practitioner Family; Visit Provider Obstetrics & Gynecology
DX: Z12.31 Encounter for screening mammogram for malignant neoplasm of breast (principal)
CPT/HCPCS: 77063; 77067

== ENCOUNTER 2024-04-27 09:13 | Outpatient (CLI) | payer BC, SELFPAY ==
--- NOTE | ~2024-04-27 | US_ITS ---
EXAMINATION: US soft tissue LE DATE: 04/27/2024 09:36 INDICATION: Localized swelling, mass or lump at the left smith TECHNIQUE: Multiple grayscale and Doppler ultrasound images of the subcutaneous tissues at the region of concern at the left smith were obtained. COMPARISON: None FINDINGS: Small reticular pattern of decreased echogenicity in the deep subcutaneous fat along the superficial margin of a bone, presumably the tibial diaphysis consistent with nonspecific edema. Otherwise normal appearance to the subcutaneous fat with no abnormal masses or loculated fluid collections. There is a smooth cortical margin to the underlying bone. The visualized portion of the adjacent musculature a lso appears normal. IMPRESSION: 1. Minimal nonspecific subcutaneous edema at the region of concern. No abnormal masses or loculated f luid collections identified. Reviewed, dictated and finalized at location A. IMPRESSION: 1. Minimal nonspecific subcutaneous edema at the region of concern. No abnormal masses or loculated fluid collections identified.
== END 2024-04-27 09:14 ==
LOC: MICIMG 09:14
PROVIDERS: PCP Nurse Practitioner Family; Visit Provider Nurse Practitioner Family
DX: R22.42 Localized swelling, mass and lump, left lower limb (principal)
CPT/HCPCS: 76882

== ENCOUNTER 2024-11-27 15:45 | Outpatient (CLI) | payer BC, SELFPAY ==
--- OUTSIDE RECORDS SUMMARY | 2024-11-27 16:29 | XMS_ITS | Patient Health Summary ---
Author Organization [facility] Address [address] [place] [address] Care Team Providers Care Associate Vice President Name Role Phone Zoie Elizondo ADEOLA-CARDIOLOGY ASSOCIATE Primary Care Provider + Note from [facility],non-owned Affiliates and Associated Physician Practices is amultiple site organization consisting of ambulatory clinics and hospital sitesin [place], [place], [place] and [place]. This disclosure is being madepursuant to the Care Everywhere program and may not contain all information available regarding this patient. Last updated 18.[facility] Allergies No known active allergies Medications * Be aware that medications may not be up to date on this document. Alwaysverify current medications with the patient. * amLODIPine (NORVASC) 5 MG tablet(Started 07/18/2019) TK 1 T PO QD 3 refills left * benazepril (LOTENSIN) 20 MG tablet(Started 07/18/2019) TK 1 T PO QD 3 refills left * vitamin D, ergocalciferol, (DRISDOL) 40838 units capsule(Started 04/20/2019) TK 1 C PO Q WK 1 refill left * OSPHENA 60 MG tablet(Started 07/16/2019) TK 1 T PO QD 3 refills left Social History Tobacco Use Types Packs/Day Years Used Date Smoking Tobacco: Former Smokeless Tobacco: Never Sex and Gender Information Value Date Recorded Sex Assigned at Not on file Gender Identity Not on file Sexual Orientation Not on file Last Filed Vital Signs Vital Sign Reading Time Taken Comments Blood Pressure 126/84 07/23/2019 2:57 PM CDT Pulse 78 07/23/2019 2:57 PM CDT Temperature 37.2 ??C (98.9 ??F) 07/23/2019 2:57 PM CD T Respiratory Rate 16 07/23/2019 2:57 PM CDT Oxygen Saturation 98% 07/23/2019 2:57 PM CDT Inhaled Oxygen Concentration - - Weight 97.5 kg (215 lb) 07/23/2019 2:57 PM CDT Height 162.6 cm (5' 4 ) 07/23/2019 2:57 PM CDT Body Mass Index 36.9 07/23/2019 2:57 PM CDT Procedures * DERMATOPATHOLOGY(Performed 11/25/2020) * DERMATOPATHOLOGY(Performed 10/14/2020) * CULTURE RESPIRATORY UPPER(Performed 07/23/2019) Performed for Acute pharyngitis, unspecified etiology * STREP A SCREEN - POINT OF CARE (AMB) STL(Performed 07/23/2019) Performed for Acute pharyngitis, unspecified etiology * DERMATOPATHOLOGY(Performed 10/06/2017) * DERMATOPATHOLOGY(Performed 07/07/2017) * DERMATOPATHOLOGY(Performed 12/30/2016) Results * DERMATOPATHOLOGY (11/25/2020 3:33 AM HUMAN RELATIONS PROFESSOR) Only the most recent of5 resultswithin the time period is included. Case Report Dermatopathology Report ? Case: [id number] ? Authorizing Provider: ??Beverly Villalobos MD ? Collected: ? 11/25/2020 03:33 AM ? Ordering Location: ? [facility] ?Received: ?11/26/2020 09:02 AM ? Pathologist: ? Gianna Jones MD ? Specimen: ?Skin, stomach ? 1:34 PM [facility] DERMATOPATHOLOGY LABORATORY Final Diagnosis Specimen A. SKIN, stomach: DERMAL SCAR RESIDUAL BASAL CELL CARCINOMA NOT IDENTIFIED (L90.5) 1:34 PM [facility] DERMATOPATHOLOGY LABORATORY Clinical History R/O BCC. 1:34 PM [facility] DERMATOPATHOLOGY LABORATORY Gross Description Specimen A: Received is one formalin filled container labeled with the patient's name and designated stomach. The specimen consists of a non-oriented ellipse of skin measuring [id number]. The epidermal surface consists of a centrally located 5x5mm previous biopsy site. The margin is inked green. The 12 o'clock and 6 o'clock tips are submitted in cassette 1. The remainder of the ellipse is serially sectioned and submitted in cassettes 2-3. Jar 0. 1:34 PM [facility] DERMATOPATHOLOGY LABORATORY Microscopic Description Specimen A. SKIN, stomach: There are fibroblasts and collagen bundles oriented parallel to the skin surface. There are elongated blood vessels, some of which are oriented perpendicular to the skin surface. No basal cell carcinoma is identified. 1:34 PM [facility] DERMATOPATHOLOGY LABORATORY Disclaimer An external and internal positive and negative controls are appropriate for the histochemical, immunohistochemical and immunofluorescence stain(s) in this case (if any), except where stated explicitly. The performance characteristics of the stain(s) cited in this report were developed and its performance characteristic determined by the Dermatopathology Laboratory at [facility] directed by Dr. Fabricio Adam. These tests need not be, and therefore are not, approved by the [place] Food and Drug Administration. The tests are used for clinical purposes. Billing Codes Specimen Charges Stain Charges 86214 1 1 1:34 PM HUMAN RELATIONS PROFESSOR DERMATOPATHOLOGY LABORATORY Embedded Images 1 1:34 PM HUMAN RELATIONS PROFESSOR DERMATOPATHOLOGY LABORATORY Pathology/Cytolo gy TISSUE SPECIMEN FROM SKIN / Unknown 11/25/2020 3:33 AM HUMAN RELATIONS PROFESSOR 11/26/2020 9:02 AM HUMAN RELATIONS PROFESSOR Beverly Vilallobos MD LAB - PATHOLOGY/CYTO LOGY ORDERABLES DERMATOPATHOLOGY LABORATORY [facility] - Department of Dermatology [address], [address] [phone] * CULTURE RESPIRATORY UPPER (07/23/2019 3:07 PM CDT) Upper Respiratory Culture Final report [facility] ACCOUNT BILL Result 1 [facility] ACCOUNT BILL Comment:Routine respiratory juanjose Microbiology ENTIRE THROAT (SURFACE REGION OF NECK) / Unknown 07/23/2019 3:07 PM CDT 07/23/2019 Narrative Resulting Agency Comment Lab Testing performed at: [facility] [address] ??[facility] [id number] Dk [facility] - MICROBIOLOG Y ORDERABLES [facility] ACCOUNT BILL [address] [place] [address] * STREP A SCREEN - POINT OF CARE (AMB) STL (07/23/2019 2:59 PM CDT) Strep A Rapid POCT Negative Negative Strep A Internal Control Present Lot # [id number] Expiration Date 10 29 2020 Throat ENTIRE THROAT (SURFACE REGION OF NECK) / Unknown 07/23/2019 2:59 PM CDT Dk Adams APRN-CARDIOLOGY ASSOCIATE LAB - POINT OF CA RE ORDERABLES Care Teams Associate Vice President Relationship Specialty Start Date End Date Zoie Elizondo APRN-CARDIOLOGY ASSOCIATE [address] [phone] PCP - General Nurse Practitioner 07/23/19
--- OUTSIDE RECORDS SUMMARY | 2024-11-27 16:29 | XMS_ITS | Clinical Summary ---
Author Organization [facility] Address [address] [place] [address] Care Team Providers Care Archaeology Professor Name Role Phone Zoie Elizondo ADEOLA-MOLECULAR BIOLOGIST Primary Care Provider + Source Comments [facility],non-owned Affiliates and Associated Physician Practices is amultiple site organization consisting of ambulatory clinics and hospital sitesin [place], [place], [place] and [place]. This disclosure is being madepursuant to the Care Everywhere program and may not contain all information available regarding this patient. Last updated 18.[facility] Allergies No known active allergies Medications * Be aware that medications may not be up to date on this document. Alwaysverify current medications with the patient. Medication Sig Dispensed Refills Start Date End Date Status amLODIPine (NORVASC) 5 MG tablet TK 1 T PO QD 3 07/18/2019 Active benazepril (LOTENSIN) 20 MG tablet TK 1 T PO QD 3 07/18/2019 Active vitamin D, ergocalciferol, (DRISDOL) 73645 units capsule TK 1 C PO Q WK 1 04/20/2019 A ctive OSPHENA 60 MG tablet TK 1 T PO QD 3 07/16/2019 Ac tive Social History Tobacco Use Types Packs/Day Years [...] Mass Index 36.9 07/23/2019 2:57 PM CDT Plan of Treatment Health Maintenance Due Date Last Done Comments COLOGUARD (AGES 45-75) - COL ON CA SCREENING 1964 COLON MONITORING 1964 COLONOSCOPY - COLON CA SCREENING 1964 CT COLONOGRAPHY - COLON CA SCREENING 1964 Colorectal Cancer Screening 1964 FIT - COLON CA SCREENING 1964 FLEX SIG - COLON CA SCREENING 1964 LIPID TESTING 1964 MAMMOGRAM 1964 PAP SMEAR 1964 HIV SCREENING 02/11/1979 HEPATITIS C SCREENING 02/07/1982 DTAP/TDAP/TD VACCINES (1 - Tdap) 02/11/1983 PNEUMOCOCCAL VACCINE 50+ (1 of 1 - PCV) 02/11/2014 ZOSTER VACCINE (1 of 2) 02/11/2014 SCREENING FOR DIABETES 07/23/2019 COVID-19 VACCINE ( - 2023-2 5 season) 2024 INFLUENZA VACCINE (#1) 2024 DEPRESSION SCREENING 10/30/2024 Respiratory Syncytial Virus (RSV) Vaccine Pt: or over 60 yrs (1 - 1-dose 75+ series) 02/11/2039 HEPATITIS B VACCINE Aged Out No longe r eligible based on patient's age to complete this topic HIB VACCINE Aged Out No longer eligi ble based on patient's age to complete this topic HPV VACCINE Aged Out No longer eligi ble based on patient's age to complete this topic MENINGOCOCCAL (Group B) VACCINE Aged Out No longer eligible based on patient's age to complete this topic MENINGOCOCCAL VACCINE Aged Out No susy virgil eligible based on patient's age to complete this topic PNEUMOCOCCAL VACCINE Aged Out No long er eligible based on patient's age to complete this topic Care Teams Archaeology Professor Relationship Specialty Start Date End Date Zoie Elizondo APRN-MARI [address] [phone] PCP - General Nurse Practitioner 07/23/19
--- OUTSIDE RECORDS SUMMARY | 2024-11-27 16:29 | XMS_ITS | Referral Summary ---
Author Organization [facility] Address [address] [place] [address] Care Team Providers Care Dipper And Baker Name Role Phone Zoie Elizondo ADEOLA-CREDIT RATING CHECKER Primary Care Provider + Source Comments [facility],non-owned Affiliates and Associated Physician Practices is amultiple site organization consisting of ambulatory clinics and hospital sitesin [place], [place], [place] and [place]. This disclosure is being madepursuant to the Care Everywhere program and may not contain all information available regarding this patient. Last updated 18.[facility] Allergies No known active [...] 3 07/18/2019 Active vitamin D, ergocalciferol, (DRISDOL) 71763 units capsule TK 1 C PO Q [...] 07/23/2019 2:57 PM CDT Plan of Treatment Not on file Care Teams Dipper And Baker Relationship Specialty Start Date End Date Zoie Elizondo APRN-MARI [address] [phone] PCP - General Nurse Practitioner 07/23/19
--- OUTSIDE RECORDS SUMMARY | 2024-11-27 16:29 | XMS_ITS | Encounter Summary ---
Author Organization [facility] Address [address] [place] [address] Care Team Providers Care Convict Guard Name Role Phone Zoie Elizondo PRESIDENT PRACTICING UROLOGIST-SPORTS SPECIALIST Primary Care Provider + Encounter Details Date Type Department Care Team (Late st Contact Info) Description 11/26/2020 Lab Requisition [facility] [address] [place] [phone] Beverly Villalobos MD [address] [place] [address] Social History Tobacco Use Types Packs/Day Years Used Date Smoking Tobacco: Former Smokeless Tobacco: Never Sex and Gender Information Value Date Recorded Sex Assigned at Not on file Gender Identity Not on file Sexual Orientation Not on file documented as of this encounter Plan of Treatment Not on file documented as of this encounter Procedures Procedure Name Priority Date/Time Associated Diagnosis Comments DERMATOPATHOLOGY Routine 11/25/2020 3:33 AM URBAN PLANNING PROFESSOR documented in this encounter Results * DERMATOPATHOLOGY (11/25/2020 3:33 AM URBAN PLANNING PROFESSOR) Case Report Dermatopathology Report ? Case: [id number] ? Authorizing Provider: ??Beverly Villalobos MD ? Collected: ? 11/25/2020 03:33 AM ? Ordering Location: ? [facility] ?Received: ?11/26/2020 09:02 AM ? Pathologist: ? Gianna Jones MD ? Specimen: ?Skin, stomach ? 1 1:34 PM [facility] DERMATOPATHOLOGY LABORATORY Final Diagnosis Specimen A. SKIN, stomach: DERMAL SCAR RESIDUAL BASAL CELL CARCINOMA NOT IDENTIFIED (L90.5) 1 1:34 PM [facility] DERMATOPATHOLOGY LABORATORY Clinical History R/O BCC. 1 1:34 PM [facility] DERMATOPATHOLOGY LABORATORY Gross Description Specimen A: Received is one formalin filled container labeled with the patient's name and designated stomach. The specimen consists of a non-oriented ellipse of skin measuring [id number]. The epidermal surface consists of a centrally located 5x5mm previous biopsy site. The margin is inked green. The 12 o'clock and 6 o'clock tips are submitted in cassette 1. The remainder of the ellipse is serially sectioned and submitted in cassettes 2-3. Jar 0. 1 1:34 PM [facility] DERMATOPATHOLOGY LABORATORY Microscopic Description Specimen A. SKIN, stomach: There are fibroblasts and collagen bundles oriented parallel to the skin surface. There are elongated blood vessels, some of which are oriented perpendicular to the skin surface. No basal cell carcinoma is identified. 1 1:34 PM [facility] DERMATOPATHOLOGY LABORATORY Disclaimer An external and internal positive and negative controls are appropriate for the histochemical, immunohistochemical and immunofluorescence stain(s) in this case (if any), except where stated explicitly. The performance characteristics of the stain(s) cited in this report were developed and its performance characteristic determined by the Dermatopathology Laboratory at [facility], directed by Dr. Fabricio Adam. These tests need not be, and therefore are not, approved by the [place] Food and Drug Administration. The tests are used for clinical purposes. Billing Codes Specimen Charges Stain Charges 86811 1 1 1:34 PM [facility] DERMATOPATHOLOGY LABORATORY Embedded Images 1 1:34 PM [facility] DERMATOPATHOLOGY LABORATORY Pathology/Cytolo gy TISSUE SPECIMEN FROM SKIN / Unknown 11/25/2020 3:33 AM URBAN PLANNING PROFESSOR 11/26/2020 9:02 AM [facility] Beverly Villalobos MD LAB - PATHOLOGY/CYTO LOGY ORDERABLES DERMATOPATHOLOGY LABORATORY [facility] - Department of Dermatology [address] [phone] documented in this encounter Visit Diagnoses Not on filedocumented in this encounter Care Teams Convict Guard Relationship Specialty Start Date End Date Zoie Elizondo APRN-MARI [address] [phone] PCP - General Nurse Practitioner 07/23/19 documented as of this encounter
--- OUTSIDE RECORDS SUMMARY | 2024-11-27 16:29 | XMS_ITS | Clinical Summary ---
Author Organization [facility] Address [address] [place] [address]. [place] [address] [place] [address] Care Team Providers Care Correspondent Name Role Phone Neri Vania MARIO Primary Care Provider Allergies No known active allergies Immunizations Name Administration Dates Next Due PFIZER COVID-19 (ORIGINAL FO RMULATION, PURPLE CAP) mRNA, LNP-S, PF, 30 MCG/0.3 ML DOSE 11/09/2020,10/19/2020 Social History Tobacco Use Types Packs/Day Years Used Date Smoking Tobacco: Never Smokeless Tobacco: Never Tobacco Cessation:Counseling Given: Not Answered Alcohol Use Standard Drinks/Week Comments Never 0 (1 standard drink = 0.6 oz pur e alcohol) Comments No Sex and Gender Information Value Date Recorded Sex Assigned at Not on file 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 Gender Identity Not on file Sexual Orientation Not on file Last Filed Vital Signs Vital Sign Reading Time Taken Comments Blood Pressure 186/107 04/16/2024 7:46 PM CDT Pulse 77 04/16/2024 7:46 PM CDT Temperature 36.2 ??C (97.1 ??F) 04/16/2024 7:46 PM CD T Respiratory Rate 18 04/16/2024 7:46 PM CDT Oxygen Saturation 98% 04/16/2024 7:46 PM CDT Inhaled Oxygen Concentration - - Weight 98.4 kg (217 lb) 04/16/2024 7:47 PM CDT Height 162.6 cm (5' 4 ) 04/16/2024 7:47 PM CDT Body Mass Index 37.25 04/16/2024 7:47 PM CDT Plan of Treatment Health Maintenance Due Date Last Done Comments Cervical Cancer Screening Pa p Smear (Age 30 to 64) Every 3 Years 1964 Colorectal Cancer Screening Colonoscopy (10 Years) 1964 Annual Physical 02/11/1967 DTaP, Tdap and Td Vaccines ( 1 - Tdap) 02/11/1983 Cervical Cancer Screening Pa p with HPV Testing (Age 30 to 64) Every 5 Years 02/11/1994 Cervical Cancer Screening wi th HPV 02/11/1994 Mammogram Screening 2004 Zoster Vaccines (1 of 2) 02/11/2014 COVID-19 Vaccine (3 - 2023-2 5 season) 2024 11/09/2020, 10/19/2020 Influenza Adult (#1) 2024 RSV Immunization or 60+ Years (1 - 1-dose 75+ series) 02/11/2039 Hepatitis C Completed 09/08/2021, 09/08/2021, 09/08/2021 Meningococcal B Vaccine Aged Out No l onger eligible based on patient's age to complete this topic Meningococcal Vaccine Aged Out No susy virgil eligible based on patient's age to complete this topic Pneumococcal Vaccine: Pediatrics (0 to 5 Years) and At-Risk Patients (6 to 64 Years) Aged Out No longer eligible b ased on patient's age to complete this topic RSV Immunizations Under 20 Months Aged Out No longer eligible b ased on patient's age to complete this topic Insurance Care Teams Correspondent Relationship Specialty Start Date End Date Vania Neri APNP [address] [phone] PCP - General Nurse Practitioner Family 04/16/24
--- OUTSIDE RECORDS SUMMARY | 2024-11-27 16:29 | XMS_ITS | Encounter Summary ---
Author Organization [facility] Address [address] [place] [address] Care Team Providers Care Correspondence Review Clerk Name Role Phone Zoie Elizondo HOOP ROLLS OPERATOR-BIOLOGY ADJUNCT INSTRUCTOR Primary Care Provider + Encounter Details Date Type Department Care Team (Late st Contact Info) Description 10/15/2020 Lab Requisition [facility] [address] [facility] [facility] [place] [phone] Aliya Flores MD [address] [facility] [address] [place] [address] Social History Tobacco Use Types Packs/Day Years [...] Priority Date/Time Associated Diagnosis Comments DERMATOPATHOLOGY Routine 10/14/2020 12:0 0 AM 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 Case: [id number] ? Authorizing Provider: ??Aliya Flores MD ? Collected: ? 10/14/2020 12:00 AM ? Ordering Location: ? [facility] ?Received: ?10/15/2020 07:06 AM ? Pathologist: ? Gianna Jones MD ? Specimen: ?Skin, stomach ? 0 4:47 PM [facility] DERMATOPATH[facility]Y [facility] Final Diagnosis Specimen A. SKIN, stomach: BASAL CELL CARCINOMA, NODULAR TYPE (C44.519) 0 4:47 PM [facility]ERMATOPATH[facility]Y [facility] Clinical History R/O BCC, irritated. 0 4:47 PM [facility]MAT[facility] Gross Description Specimen A: Received is one formalin filled container labeled with the patient's name and designated stomach. The specimen consists of a shave measuring [id number]. Jar 0. 0 4:47 PM [facility]ERMATOPATH[facility]Y [facility] Microscopic Description Specimen A. SKIN, stomach: Within the dermis there are aggregates of basaloid cells with a high nuclear to cytoplasmic ratio and peripheral palisading. 0 4:47 PM [facility] DERMATOPATHOLOGY [facility] Disclaimer An external and internal positive and negative controls are appropriate for the histochemical, immunohistochemical and immunofluorescence stain(s) in this case (if any), except where stated explicitly. The performance characteristics of the stain(s) cited in this report were developed and its performance characteristic determined by the Dermatopathology Laboratory at [facility], directed by Dr. Fabricio Adam. These tests need not be, and therefore are not, approved by the [place] Food and Drug Administration. The tests are used for clinical purposes. Billing Codes Specimen Charges Stain Charges 55845 1 0 4:47 PM TOOL PLANER SET UP OPERATOR DERMATOPATHOLOGY LABORATORY Embedded Images 0 4:47 PM TOOL PLANER SET UP OPERATOR DERMATOPATHOLOGY LABORATORY Pathology/Cytolog y TISSUE SPECIMEN FROM SKIN / Unknown 10/14/2020 10/15/2020 7:06 AM TOOL PLANER SET UP OPERATOR Aliya Flores MD LAB - PATHOLOGY/CYT OLOGY ORDERABLES DERMATOPATHOLOGY LABORATORY [facility] - Department of Dermatology [facility] [address] [place] [address], [address] [phone] documented in this encounter Visit Diagnoses Not on filedocumented in this encounter Care Teams Correspondence Review Clerk Relationship Specialty Start Date End Date Zoie Elizondo APRN-MARI [address] [phone] PCP - General Nurse Practitioner 07/23/19 documented as of this encounter
[2024-11-27 16:44] LABS: Influenza A QL RT-PCR Negative (Negative); Influenza B QL RT-PCR Negative (Negative); RSV RNA, RT-PCR Negative (Negative); SARS-CoV-2 RNA PCR Positive (Negative)
== END 2024-11-27 15:46 | disposition home or self-care (01) ==
LOC: ANHIMG 15:47 → ANHLAB 15:57
PROVIDERS: PCP Nurse Practitioner Family; Visit Provider Nurse Practitioner Family
DX: U07.1 COVID-19 (principal); R68.89 Other general symptoms and signs
CPT/HCPCS: 87637

== ENCOUNTER 2025-03-21 10:16 | Outpatient (CLI) | payer BC, SELFPAY ==
--- NOTE | ~2025-03-21 | MM_ITS ---
EXAMINATION: MM screening judith BI w shauna HISTORY: Screening TECHNIQUE: Craniocaudal and mediolateral oblique 3-D tomosynthesis images were obtained and synthetic 2-D images were generated. CAD analysis was submitted and interpreted. COMPARISON: Comparison to multiple prior studies sequentially, with oldest reviewed study dated 01/07. BREAST PARENCHYMAL COMPOSITION: Not dense: There are scattered areas of fibroglandular density. FINDINGS: There is no evidence of suspicious mass, calcification, or architectural distortion to sugg est malignancy in either breast. There has been no suspicious interval change. IMPRESSION: 1. No mammographic evidence of malignancy. 2. Recommend routine screening mammography in one year. BI-RADS Category 1: Negative Reviewed, dictated and finalized at location B.
== END 2025-03-21 10:17 | disposition home or self-care (01) ==
PROVIDERS: PCP Obstetrics & Gynecology; Visit Provider Obstetrics & Gynecology
DX: Z12.31 Encounter for screening mammogram for malignant neoplasm of breast (principal)
CPT/HCPCS: 77063; 77067